=== PATIENT | male | born 1985 | race African-American/Black ===

== ENCOUNTER 2020-01-19 08:26 | Emergency (ER) | payer OTHER ==
[~2020-01-19] VITALS: Ht 170.2 cm; Wt 108.9 kg
[2020-01-19 08:32] VITALS: BP 140/92
[2020-01-19] MEDS ORDERED: AUGMENTIN 875-1 EACH PO (08:41)
== END 2020-01-19 08:48 | disposition home or self-care (01) ==
LOC: M.ERS 08:26
DX: H66.91 Otitis media, unspecified, right ear (principal)